=== PATIENT | female | born 1955 | race Caucasian/White ===

== ENCOUNTER 2017-03-03 18:57 | Observation (INO) | payer BC ==
[~2017-03-03] VITALS: Ht 162.6 cm; Wt 99.0 kg
[~2017-03-03 18:57] MED LIST: AMOXICILLIN500 MG OR; FLEXERIL PO; MECLIZINE25 MG OR; NAPROSYN500 MG PO; ULTRAM50 M1 PO; ZOFRAN4 M1 OR
[2017-03-03] MEDS ORDERED: PREVACID30 M2 PO (19:09)
[2017-03-03] MEDS ORDERED: TARCEVA25 MG PO (19:09)
--- NOTE | 2017-03-03 19:14 | NUR ---
PATIENT AMBULATORY TO ROOM 10. UNDRESSED INTO A GOWN. AWAITING MD CERVANTES.
[2017-03-03] MEDS ORDERED: XELODA500 MG PO (19:21)
--- NOTE | 2017-03-03 19:47 | NUR ---
MEDICATED FOR TEMP WITH TYLENOL AND MOTRIN. IV FLUIDS UP. AT BEDSIDE. PT COMPLAINING OF NAUSEA DR CASTORENA INFORMED.
[2017-03-03 20:00] LABS: HEMATOCRIT 31.2 % (37.0-47.0); HEMOGLOBIN 10.5 g/dl (12.0-16.0); IMMATURE GRANULOCYTES 0.4 % (0.0-1.0); MEAN CELL VOLUME 89.7 fL CALC (80.0-100.0); MEAN CORPUSCULAR HGB 30.2 pG CALC (26.0-32.0); MEAN CORPUSCULAR HGB CONC 33.7 g/L CALC (32.0-36.0); RED BLOOD COUNT 3.48 mill/uL (4.20-5.60)
[2017-03-03 20:21] LABS: ALBUMIN 3.6 g/dL (3.2-5.0); ALKALINE PHOSPHATASE 139 u/l (38-126); ANION GAP 16 (6-22 (CALC)); BILIRUBIN, TOTAL 1.5 mg/dL (0.0-1.4); BUN 9 mg/dL (7-17); BUN/CREATININE RATIO 17 (12-20 (CALC)); CALCIUM 8.8 mg/dL (8.4-10.2); CARBON DIOXIDE 25 mmol/l (22-30); CHLORIDE 101 mmol/l (95-108); CREATININE 0.5 mg/dL (0.5-1.0); GFR > 60 ML/MIN (>=60 (CALC)); GFR FOR AFR.AMER. > 60 ML/MIN (>=60 (CALC)); GLUCOSE 137 mg/dL (65-105); POTASSIUM 4.1 mmol/l (3.5-5.1); SGOT/AST 224 u/l (14-36); SGPT/ALT 145 u/l (9-52); SODIUM 137 mmol/l (137-146); TOTAL PROTEIN 6.5 g/dL (6.3-8.2)
[2017-03-03 20:44] LABS: AMYLASE < 30 u/l (30-110); LIPASE < 10 u/l (23-300)
--- NOTE | 2017-03-03 20:45 | NUR ---
NO FURTHER NAUSEA. XRAY DONE AT BEDSIDE, URINE COLLECTED.
[2017-03-03 21:20] LABS: URINE CLARITY SLIGHT CLOUDY; URINE COLOR YELLOW
[2017-03-03 21:21] LABS: URINE BILIRUBIN - DIPSTICK NEGATIVE (NEGATIVE); URINE BLOOD DIPSTICK TRACE-LYSED (NEGATIVE); URINE GLUCOSE - DIPSTICK NEGATIVE (NEGATIVE); URINE KETONE NEGATIVE (NEGATIVE); URINE LEUK ESTERASE LARGE (NEGATIVE); URINE NITRITE - DIPSTICK POSITIVE (Negative); URINE PH 7.5 (4.5-8.0); URINE PROTEIN - DIPSTICK NEGATIVE (NEG-TRACE)
[2017-03-03 21:32] LABS: URINE RBC 0-2 RBC/hpf (0-5)
[2017-03-03 21:33] LABS: URINE BACTERIA MANY hpf; URINE SQUAMOUS EPITHELIAL CELL RARE EPI/hpf (0-FEW)
--- NOTE | 2017-03-03 21:43 | NUR ---
TEMP DOWN TO 100.7, NO NAUSEA PT STATES SHE FEELS BETTER.
--- NOTE | 2017-03-03 22:20 | NUR ---
PT COMPLAINING IV HURTING. NOTED SWELLING AT SITE, IV SITE PULLED.
--- NOTE | 2017-03-03 22:50 | NUR ---
STARTED IV TO RAC, CALLED FLOOR FOR REPORT. NURSE WILL CALL BACK
--- NOTE | 2017-03-03 23:14 | NUR ---
Admission Note Report Given to: ADILENE ANDERSON. Transported by: X Wheelchair Stretcher Transported with: X Nurse Transporter X Patent IV O2 X Remedial Reading Teacher
--- NOTE | 2017-03-03 23:25 | NUR ---
PT. ARRIVED TO THE FLOOR VIA W/C ACCOMPANIED BY ER NURSE. ORIENTED TO ROOM, CALL LIGHT, AND POC, VERBALIZES UNDERSTANDING. ASSESSMENT COMPLETED. IV SITE PATENT TO RAC AND ORDERED IVF HUNG. PT. DENIES PAIN. PT. PROVIDED WITH SANDWICH AND JUICE PER REQUEST. ENCOURAGED TO CALL FOR ANY NEEDS. CALL LIGHT IS IN REACH. WILL CONTINUE TO MONITOR.
[2017-03-03] MEDS ORDERED: TRESIBA FL100 UNIT/M SC (23:39)
[2017-03-04 00:54] VITALS: BP 107/67
--- NOTE | 2017-03-04 03:45 | NUR ---
PT. ASSISTED TO AND FROM BATHROOM, URINE MISSED THE HAT. PT. DENIES FURTHER NEEDS. VS OBTAINED. ENCOURAGED TO CALL FOR ANY NEEDS. CALL LIGHT IS IN REACH.
[2017-03-04 03:47] VITALS: BP 98/67
[2017-03-04 05:57] LABS: HEMATOCRIT 28.2 % (37.0-47.0); HEMOGLOBIN 9.2 g/dl (12.0-16.0); IMMATURE GRANULOCYTES 0.2 % (0.0-1.0); MEAN CELL VOLUME 90.7 fL CALC (80.0-100.0); MEAN CORPUSCULAR HGB 29.6 pG CALC (26.0-32.0); MEAN CORPUSCULAR HGB CONC 32.6 g/L CALC (32.0-36.0); NEUT# 4.24 thou/uL (2.00-7.15); RED BLOOD COUNT 3.11 mill/uL (4.20-5.60)
[2017-03-04 06:11] LABS: ALBUMIN 2.9 g/dL (3.2-5.0); ALKALINE PHOSPHATASE 115 u/l (38-126); ANION GAP 13 (6-22 (CALC)); BILIRUBIN, TOTAL 0.9 mg/dL (0.0-1.4); BUN 9 mg/dL (7-17); BUN/CREATININE RATIO 17 (12-20 (CALC)); CALCIUM 8.4 mg/dL (8.4-10.2); CARBON DIOXIDE 25 mmol/l (22-30); CHLORIDE 109 mmol/l (95-108); CREATININE 0.5 mg/dL (0.5-1.0); GFR > 60 ML/MIN (>=60 (CALC)); GFR FOR AFR.AMER. > 60 ML/MIN (>=60 (CALC)); GLUCOSE 99 mg/dL (65-105); MAGNESIUM 2.1 mg/dL (1.6-2.3); POTASSIUM 3.9 mmol/l (3.5-5.1); SGOT/AST 170 u/l (14-36); SGPT/ALT 127 u/l (9-52); SODIUM 143 mmol/l (137-146); TOTAL PROTEIN 5.5 g/dL (6.3-8.2)
[2017-03-04 08:00] VITALS: BP 103/67
--- NOTE | 2017-03-04 08:00 | NUR ---
ASSESSMENT IS COMPLETED: PT IS RELAXING IN BED WITH NO DISTRESS NOTED. IV SITE IS FREE FROM REDNESS OR EDEMA
[2017-03-04 10:27] VITALS: BP 100/68
--- NOTE | 2017-03-04 12:20 | NUR ---
PT IS RELAXING IN BED WITH NO DISTRESS NOTED. IV SITE IS FREE FROM REDNESS OR EDEMA
[2017-03-04 14:48] VITALS: BP 100/68; BP 109/72
--- NOTE | 2017-03-04 16:20 | NUR ---
PT AND FAMILY IN THE ROOM, PT C/O NAUSEA NEW MEDICATIONS ORDERED
[2017-03-04 19:24] VITALS: BP 102/66
--- NOTE | 2017-03-04 19:30 | NUR ---
PT. SITTING UP IN BED WITH NO DISTRESS NOTED. ASSESSMENT AND VS COMPLETED. VSS. PT. C/O CONSTIPATION, LAST BM 03/03/17, MEDICATED WITH ORDERED STOOL SOFTNER WELL MIRALAX. IV SITE PATENT AND SL TO RAC. ENCOURAGED TO CALL FOR ANY NEEDS. CALL LIGHT IS IN REACH. WILL CONTINUE TO MONITOR.
--- NOTE | 2017-03-04 21:18 | NUR ---
PT. RESTING IN BED WITH NO DISTRESS NOTED. SCHED NOHELIA RIVAS. PT. REFUSES ORDERED LEVEMIR AT THIS TIME. SNACK PROVIDED. CALL LIGHT IS IN REACH.
--- NOTE | 2017-03-04 23:08 | NUR ---
PT. RESTING IN BED WITH EYES OPEN, NO DISTRESS NOTED. PT. VOICES NO COMPLAINTS AND DENIES NEEDS. CALL LIGHT IS IN REACH.
[2017-03-05 00:20] VITALS: BP 92/60
--- NOTE | 2017-03-05 03:29 | NUR ---
PT. RESTING IN BED WATCHING TV, NO DISTRESS NOTED. PT. REPORTS HAVING A MODERATE BM. PO FLUIDS OFFERED. PT. DENIES NEEDS AND VOICES NO COMPLAINTS. CALL LIGHT IS IN REACH.
[2017-03-05 04:00] VITALS: BP 114/62
--- NOTE | 2017-03-05 07:40 | NUR ---
PT ASSISTED TO CHAIR; PT C/O WEAKNESS AT TIME; TELE MONITOR IN PLACE; CALL CAMPOS WITHIN REACH; WILL CONTINUE TO MONITOR.
[2017-03-05 08:09] VITALS: BP 106/65
[2017-03-05 08:12] VITALS: BP 112/64
[2017-03-05 08:29] LABS: HEMATOCRIT 31.4 % (37.0-47.0); HEMOGLOBIN 10.3 g/dl (12.0-16.0); MEAN CELL VOLUME 90.8 fL CALC (80.0-100.0); MEAN CORPUSCULAR HGB 29.8 pG CALC (26.0-32.0); MEAN CORPUSCULAR HGB CONC 32.8 g/L CALC (32.0-36.0); RED BLOOD COUNT 3.46 mill/uL (4.20-5.60); RED CELL DISTRI WIDTH 18.4 % (11.5-15.5)
[2017-03-05 08:47] LABS: ALBUMIN 3.6 g/dL (3.2-5.0); ALKALINE PHOSPHATASE 151 u/l (38-126); ANION GAP 16 (6-22 (CALC)); BILIRUBIN, TOTAL 0.9 mg/dL (0.0-1.4); BUN 8 mg/dL (7-17); BUN/CREATININE RATIO 14 (12-20 (CALC)); CALCIUM 9.1 mg/dL (8.4-10.2); CARBON DIOXIDE 24 mmol/l (22-30); CHLORIDE 106 mmol/l (95-108); CREATININE 0.5 mg/dL (0.5-1.0); GFR > 60 ML/MIN (>=60 (CALC)); GFR FOR AFR.AMER. > 60 ML/MIN (>=60 (CALC)); GLUCOSE 110 mg/dL (65-105); POTASSIUM 4.4 mmol/l (3.5-5.1); SGOT/AST 178 u/l (14-36); SGPT/ALT 144 u/l (9-52); SODIUM 141 mmol/l (137-146); TOTAL PROTEIN 6.5 g/dL (6.3-8.2)
--- NOTE | 2017-03-05 09:00 | NUR ---
PT SITTING IN CHAIR; NO COMPLAINTS VOICED; TELE MONITOR IN PLACE; CALL CAMPOS WITHIN REACH; WILL CONTINUE TO MONITOR.
[2017-03-05 11:09] VITALS: BP 109/58
[2017-03-05] MEDS ORDERED: BACTRIM DS1 TAB PO (11:23)
--- NOTE | 2017-03-05 12:03 | NUR ---
PT IN SEMI FOWLERS POSITION; DENIES PAIN; TELE AND IV SITE REMOVED PER MD ORDERS; CALL CAMPOS WITHIN REACH; WILL CONTINUE TO MONITOR.
--- NOTE | 2017-03-05 12:22 | NUR ---
Discharge instructions given. Patient verbalizes understanding of same. Discharged in stable condition via Wheelchair to Home with family. All belongings sent with pt.
== END 2017-03-05 12:30 | disposition home or self-care (01) | DRG 690 ==
LOC: ENPENDDIS → ED 18:57 → ED-I 22:12 → ED 22:25 → MS2 22:26
PROVIDERS: Emergency Medicine; ADMIT Internal Medicine; ATTEND Internal Medicine
DX: N39.0 Urinary tract infection, site not specified (principal); C25.9 Malignant neoplasm of pancreas, unspecified; E13.9 Other specified diabetes mellitus without complications; B96.89 Other specified bacterial agents as the cause of diseases classified elsewhere; Z79.4 Long term (current) use of insulin; Z79.899 Other long term (current) drug therapy
CPT/HCPCS: G0378; J1650

== ENCOUNTER 2019-01-25 20:29 | Inpatient (IN) | payer BC ==
[~2019-01-25] VITALS: Ht 162.6 cm; Wt 70.0 kg
[~2019-01-25 20:29] MED LIST changes: +BACTRIM DS1 TAB PO; +PREVACID30 M2 PO; +TARCEVA25 MG PO; +TRESIBA FL100 UNIT/M SC; +XELODA500 MG PO
[2019-01-25] MEDS ORDERED: FIASP FLEX100 UNIT/M (20:51)
[2019-01-25 21:05] LABS: HEMOGLOBIN 10.4 g/dl (12.0-16.0); IMMATURE GRANULOCYTES 0.4 % (0.0-5.0); MEAN CELL VOLUME 89.1 fL CALC (80.0-100.0); MEAN CORPUSCULAR HGB 29.9 pG CALC (26.0-32.0); MEAN CORPUSCULAR HGB CONC 33.5 g/L CALC (32.0-36.0); NEUT# 5.33 thou/uL (2.00-7.15); RED BLOOD COUNT 3.48 mill/uL (4.20-5.60); RED CELL DISTRI WIDTH 16.6 % (11.5-15.5)
[2019-01-25 21:06] LABS: URINE BILIRUBIN - DIPSTICK NEGATIVE (NEGATIVE); URINE BLOOD DIPSTICK NEGATIVE (NEGATIVE); URINE COLOR YELLOW; URINE GLUCOSE - DIPSTICK 500 mg/dL (NEGATIVE); URINE KETONE NEGATIVE (NEGATIVE); URINE LEUK ESTERASE NEGATIVE (NEGATIVE); URINE NITRITE - DIPSTICK NEGATIVE (Negative); URINE PROTEIN - DIPSTICK TRACE mg/dL (NEG-TRACE); URINE SPECIFIC GRAVITY 1.025
[2019-01-25 21:29] LABS: ALKALINE PHOSPHATASE 94 u/l (38-126); BILIRUBIN, TOTAL 0.5 mg/dL (0.0-1.4); BUN 4 mg/dL (8-23); BUN/CREATININE RATIO 17 (12-20 (CALC)); CHLORIDE 114 mmol/l (95-108); CREATININE 0.3 mg/dL (0.5-1.0); GFR > 60 ML/MIN (>=60 (CALC)); GFR FOR AFR.AMER. > 60 ML/MIN (>=60 (CALC)); LIPASE < 10 u/l (23-300); SGOT/AST 16 u/l (9-36)
[2019-01-25 21:38] LABS: ALBUMIN 1.9 g/dL (3.2-5.0); AMYLASE < 30 u/l (30-110); ANION GAP 9 (6-22 (CALC)); CARBON DIOXIDE 16 mmol/l (22-30); POTASSIUM 2.9 mmol/l (3.5-5.1); SODIUM 136 mmol/l (137-146); TOTAL PROTEIN 4.4 g/dL (6.3-8.2)
[2019-01-26 03:32] VITALS: BP 138/70
[2019-01-26 05:18] LABS: BILIRUBIN, TOTAL 0.5 mg/dL (0.0-1.4); BUN 5 mg/dL (8-23); BUN/CREATININE RATIO 13 (12-20 (CALC)); CHLORIDE 105 mmol/l (95-108); CREATININE 0.4 mg/dL (0.5-1.0); GFR > 60 ML/MIN (>=60 (CALC)); GFR FOR AFR.AMER. > 60 ML/MIN (>=60 (CALC)); POTASSIUM 3.1 mmol/l (3.5-5.1); SGOT/AST 17 u/l (9-36); SODIUM 133 mmol/l (137-146); TOTAL PROTEIN 5.1 g/dL (6.3-8.2)
[2019-01-26 05:20] LABS: ALKALINE PHOSPHATASE 148 u/l (38-126); ANION GAP 9 (6-22 (CALC)); CARBON DIOXIDE 22 mmol/l (22-30)
[2019-01-26 05:21] LABS: ALBUMIN 2.4 g/dL (3.2-5.0); MAGNESIUM 2.5 mg/dL (1.6-2.3)
[2019-01-26 07:06] VITALS: BP 122/63
[2019-01-26 17:29] VITALS: BP 117/77
[2019-01-26 19:21] VITALS: BP 125/69
[2019-01-27] VITALS (11 sets, daily range): BP systolic 100–145; BP diastolic 63–81
[2019-01-27 05:33] LABS: HEMATOCRIT 29.6 % (37.0-47.0); HEMOGLOBIN 9.8 g/dl (12.0-16.0); IMMATURE GRANULOCYTES 0.4 % (0.0-5.0); MEAN CELL VOLUME 89.7 fL CALC (80.0-100.0); MEAN CORPUSCULAR HGB 29.7 pG CALC (26.0-32.0); MEAN CORPUSCULAR HGB CONC 33.1 g/L CALC (32.0-36.0); NEUT# 3.83 thou/uL (2.00-7.15); RED BLOOD COUNT 3.3 mill/uL (4.20-5.60); RED CELL DISTRI WIDTH 17.1 % (11.5-15.5)
[2019-01-27 05:47] LABS: ALBUMIN 2.3 g/dL (3.2-5.0); ALKALINE PHOSPHATASE 153 u/l (38-126); ANION GAP 8 (6-22 (CALC)); BILIRUBIN, TOTAL 0.6 mg/dL (0.0-1.4); BUN 5 mg/dL (8-23); BUN/CREATININE RATIO 13 (12-20 (CALC)); CARBON DIOXIDE 20 mmol/l (22-30); CHLORIDE 110 mmol/l (95-108); CREATININE 0.4 mg/dL (0.5-1.0); GFR > 60 ML/MIN (>=60 (CALC)); GFR FOR AFR.AMER. > 60 ML/MIN (>=60 (CALC)); SGOT/AST 23 u/l (9-36); SODIUM 134 mmol/l (137-146); TOTAL PROTEIN 5.2 g/dL (6.3-8.2)
[2019-01-27 05:56] LABS: POTASSIUM 4.2 mmol/l (3.5-5.1)
[2019-01-27 20:07] LABS: C. DIFFICILE TOXIN A&B NEGATIVE (NEGATIVE)
[2019-01-27 21:39] LABS: ANION GAP 13 (6-22 (CALC)); BUN 4 mg/dL (8-23); BUN/CREATININE RATIO 11 (12-20 (CALC)); CARBON DIOXIDE 16 mmol/l (22-30); CHLORIDE 110 mmol/l (95-108); CREATININE 0.4 mg/dL (0.5-1.0); GFR > 60 ML/MIN (>=60 (CALC)); GFR FOR AFR.AMER. > 60 ML/MIN (>=60 (CALC)); POTASSIUM 4.8 mmol/l (3.5-5.1); SODIUM 134 mmol/l (137-146)
[2019-01-27 21:45] LABS: MAGNESIUM 1.8 mg/dL (1.6-2.3)
[2019-01-28] VITALS (15 sets, daily range): BP systolic 86–114; BP diastolic 57–74
[2019-01-28 05:23] LABS: HEMATOCRIT 30.2 % (37.0-47.0); HEMOGLOBIN 10.1 g/dl (12.0-16.0); IMMATURE GRANULOCYTES 0.7 % (0.0-5.0); MEAN CELL VOLUME 90.4 fL CALC (80.0-100.0); MEAN CORPUSCULAR HGB 30.2 pG CALC (26.0-32.0); MEAN CORPUSCULAR HGB CONC 33.4 g/L CALC (32.0-36.0); PLATELET COUNT 240 thou/uL (130-400); RED BLOOD COUNT 3.34 mill/uL (4.20-5.60); RED CELL DISTRI WIDTH 17.3 % (11.5-15.5)
[2019-01-28 05:48] LABS: ALBUMIN 2.2 g/dL (3.2-5.0); ALKALINE PHOSPHATASE 144 u/l (38-126); ANION GAP 9 (6-22 (CALC)); BILIRUBIN, TOTAL 0.7 mg/dL (0.0-1.4); BUN 5 mg/dL (8-23); BUN/CREATININE RATIO 13 (12-20 (CALC)); CARBON DIOXIDE 19 mmol/l (22-30); CHLORIDE 110 mmol/l (95-108); CREATININE 0.4 mg/dL (0.5-1.0); GFR > 60 ML/MIN (>=60 (CALC)); GFR FOR AFR.AMER. > 60 ML/MIN (>=60 (CALC)); MAGNESIUM 1.8 mg/dL (1.6-2.3); POTASSIUM 4.7 mmol/l (3.5-5.1); SGOT/AST 24 u/l (9-36); SODIUM 135 mmol/l (137-146); TOTAL PROTEIN 5.2 g/dL (6.3-8.2)
[2019-01-28 06:19] LABS: BAND 2 % (0-8); MANUAL DIFFERENTIAL YES; OTHER CELL TYPE 2; PLATELET ESTIMATE NORMAL
[2019-01-28 10:15] LABS: PROTHROMBIN TIME 21.2 SECONDS (9.0-12.5)
[2019-01-29 00:01] VITALS: BP 100/63
[2019-01-29 02:00] VITALS: BP 106/64
[2019-01-29 04:00] VITALS: BP 114/64
[2019-01-29 04:57] LABS: HEMOGLOBIN 10.2 g/dl (12.0-16.0); IMMATURE GRANULOCYTES 1.3 % (0.0-5.0); MEAN CELL VOLUME 90.4 fL CALC (80.0-100.0); MEAN CORPUSCULAR HGB 29.7 pG CALC (26.0-32.0); MEAN CORPUSCULAR HGB CONC 32.9 g/L CALC (32.0-36.0); NEUT# 12.53 thou/uL (2.00-7.15); RED BLOOD COUNT 3.43 mill/uL (4.20-5.60); RED CELL DISTRI WIDTH 17.7 % (11.5-15.5)
[2019-01-29 05:47] LABS: ALBUMIN 2.4 g/dL (3.2-5.0); ALKALINE PHOSPHATASE 215 u/l (38-126); BILIRUBIN, TOTAL 0.7 mg/dL (0.0-1.4); BUN 11 mg/dL (8-23); BUN/CREATININE RATIO 18 (12-20 (CALC)); CARBON DIOXIDE 20 mmol/l (22-30); CHLORIDE 103 mmol/l (95-108); CREATININE 0.6 mg/dL (0.5-1.0); GFR > 60 ML/MIN (>=60 (CALC)); GFR FOR AFR.AMER. > 60 ML/MIN (>=60 (CALC)); MAGNESIUM 1.9 mg/dL (1.6-2.3); SODIUM 131 mmol/l (137-146); TOTAL PROTEIN 5.7 g/dL (6.3-8.2)
[2019-01-29 05:54] LABS: ANION GAP 14 (6-22 (CALC)); POTASSIUM 5.5 mmol/l (3.5-5.1); SGOT/AST 67 u/l (9-36)
[2019-01-29 06:00] VITALS: BP 98/69
[2019-01-29 06:02] LABS: LIPASE 12 u/l (23-300)
[2019-01-29 06:18] LABS: AMYLASE < 30 u/l (30-110)
[2019-01-29 08:00] VITALS: BP 105/67
[2019-01-29 10:00] VITALS: BP 110/67
[2019-01-29] MEDS ORDERED: MIRTAZAPINE15 MG PO (10:26)
[2019-01-29] MEDS ORDERED: ZOFRAN4 MG/TAB PO (10:27)
[2019-01-29] MEDS ORDERED: KEFLEX500 M1 PO (10:28)
== END 2019-01-29 11:17 | disposition home or self-care (01) | DRG 690 ==
LOC: ED 20:29 → ED-I 01-26 01:17 → ED 01-26 01:39 → MS2 01-26 01:40 → ICU 01-27 20:50
PROVIDERS: Emergency Medicine; Nurse Practitioner Family; ADMIT Internal Medicine Nephrology; ATTEND Internal Medicine Nephrology
DX: N39.0 Urinary tract infection, site not specified (principal); J90 Pleural effusion, not elsewhere classified; C25.9 Malignant neoplasm of pancreas, unspecified; C79.9 Secondary malignant neoplasm of unspecified site; E89.1 Postprocedural hypoinsulinemia; J98.11 Atelectasis; E87.1 Hypo-osmolality and hyponatremia; E86.0 Dehydration; K52.9 Noninfective gastroenteritis and colitis, unspecified; E83.42 Hypomagnesemia; E87.6 Hypokalemia; E83.51 Hypocalcemia; T45.1X5A Adverse effect of antineoplastic and immunosuppressive drugs, initial encounter; E13.9 Other specified diabetes mellitus without complications; D64.9 Anemia, unspecified; F32.9 Major depressive disorder, single episode, unspecified; B96.89 Other specified bacterial agents as the cause of diseases classified elsewhere; Y83.6 Removal of other organ (partial) (total) as the cause of abnormal reaction of the patient, or of later complication, without mention of misadventure at the time of the procedure; Z90.411 Acquired partial absence of pancreas; Z79.4 Long term (current) use of insulin; Z79.899 Other long term (current) drug therapy
CPT/HCPCS: J3475; Q9967; S0164

== ENCOUNTER 2019-02-03 09:30 | Inpatient (IN) | payer BC ==
[~2019-02-03] VITALS: Ht 162.6 cm; Wt 90.0 kg
[~2019-02-03 09:30] MED LIST changes: +FIASP FLEX100 UNIT/M; +KEFLEX500 M1 PO; +MIRTAZAPINE15 MG PO; +ZOFRAN4 MG/TAB PO
--- NOTE | 2019-02-03 09:44 | NUR ---
PATIENT AND FAMILY TO ROOM VIA WHEELCHAIR AND PHYSICIAN AT BEDSIDE FOR EVAL
--- NOTE | 2019-02-03 09:58 | NUR ---
IMPLANTED PORT IN R CHEST WALL ACCESSED USING STERILE TECHNIQUE WITH GOOD ASPIRATE NOTED, PT TOELRATED WELL AND DRESSING APPLIED, DATED AND TIMED, SPOUSE REMAINS AT BEDSIDE.
[2019-02-03 10:20] LABS: HEMATOCRIT 32.5 % (37.0-47.0); MEAN CELL VOLUME 87.8 fL CALC (80.0-100.0); MEAN CORPUSCULAR HGB 29.7 pG CALC (26.0-32.0); MEAN CORPUSCULAR HGB CONC 33.8 g/L CALC (32.0-36.0); NEUT# 14.45 thou/uL (2.00-7.15); RED BLOOD COUNT 3.7 mill/uL (4.20-5.60); RED CELL DISTRI WIDTH 18.6 % (11.5-15.5)
--- NOTE | 2019-02-03 10:35 | NUR ---
AWARE O0F SORE THROAT AND MOUTH WELL WHITE FILM NOTED TO TONGUE
[2019-02-03 10:41] LABS: ALBUMIN 2.5 g/dL (3.2-5.0); BUN 22 mg/dL (8-23); BUN/CREATININE RATIO 40 (12-20 (CALC)); CARBON DIOXIDE 17 mmol/l (22-30); CHLORIDE 96 mmol/l (95-108); CREATININE 0.5 mg/dL (0.5-1.0); GFR > 60 ML/MIN (>=60 (CALC)); GFR FOR AFR.AMER. > 60 ML/MIN (>=60 (CALC)); MAGNESIUM 2.3 mg/dL (1.6-2.3); TOTAL PROTEIN 6.3 g/dL (6.3-8.2)
[2019-02-03 10:42] LABS: ALKALINE PHOSPHATASE 503 u/l (38-126); ANION GAP 17 (6-22 (CALC)); BILIRUBIN, TOTAL 1.7 mg/dL (0.0-1.4); POTASSIUM 5.7 mmol/l (3.5-5.1); SGOT/AST 132 u/l (9-36); SODIUM 124 mmol/l (137-146)
--- NOTE | 2019-02-03 10:55 | NUR ---
PT OOK PO MEDICATIONS WITH WATER, REPOSITIONED FOR COMFORT, SPOUSE AT BEDSIDE
--- NOTE | 2019-02-03 11:09 | NUR ---
MD AT BEDSIDE DISCUSSING ADMISSION
--- NOTE | 2019-02-03 12:01 | NUR ---
REPORT CALLED TO [facility] ON MED SURG, ROOM 290 ASSIGNED, NO TELE
--- NOTE | 2019-02-03 12:05 | NUR ---
PT TO BE ADMITTED TO MED SURG ROOM 290 TRANSPORTED VIA STRETCHER WITH FAMILY AT SIDE AND ALL BELONGINGS SENT WITH PATIENT
[2019-02-03 12:22] VITALS: BP 151/81
--- NOTE | 2019-02-03 13:05 | NUR ---
PT HAD CAME FROM ER VIA STRETCHER BY DIEGO. X1 PERSON ASSIST PT TO BED. ASSESSMENT DONE. PT IS A&O X3. PT DENIES PAIN AT THIS TIME. IVF INFUSING WELL. O2 AT 2L VIA NC. PT STATED THAT SHE HAS BEEN FEELING WEAK AND NOT EATING WELL. PT STATED SHE HAD CHEMO LIKE THREE WEEKS AGO. SAFETY PRECAUTIONS REINFORCED AND CALL LIGHT IN REACH. FAMILY IN ROOM.
[2019-02-03 15:10] VITALS: BP 103/58
--- NOTE | 2019-02-03 15:58 | NUR ---
ASSISTED PT TO THE BSC. PT STATED I FEEL SO WEAK. PT VOID MARILOU URINE. ASSISTED PT BACK IN BED. PT DENIES PAIN. FAMILY IN ROOM. CALL LIGHT IN REACH.
[2019-02-03 16:08] LABS: URINE BLOOD DIPSTICK MODERATE (NEGATIVE); URINE COLOR DK. YELLOW; URINE GLUCOSE - DIPSTICK >=1000 mg/dL (NEGATIVE); URINE KETONE NEGATIVE (NEGATIVE); URINE LEUK ESTERASE NEGATIVE (NEGATIVE); URINE NITRITE - DIPSTICK NEGATIVE (Negative); URINE PROTEIN - DIPSTICK 30 mg/dL (NEG-TRACE); URINE SPECIFIC GRAVITY <=1.005
[2019-02-03 16:09] LABS: URINE BILIRUBIN - DIPSTICK NEGATIVE (NEGATIVE)
[2019-02-03 16:15] LABS: URINE SQUAMOUS EPITHELIAL CELL MODERATE EPI/hpf (0-FEW)
[2019-02-03 17:12] LABS: ANION GAP 13 (6-22 (CALC)); BUN 19 mg/dL (8-23); BUN/CREATININE RATIO 41 (12-20 (CALC)); CARBON DIOXIDE 18 mmol/l (22-30); CHLORIDE 102 mmol/l (95-108); CREATININE 0.5 mg/dL (0.5-1.0); GFR > 60 ML/MIN (>=60 (CALC)); GFR FOR AFR.AMER. > 60 ML/MIN (>=60 (CALC)); POTASSIUM 4.7 mmol/l (3.5-5.1); SODIUM 128 mmol/l (137-146)
[2019-02-03 19:00] VITALS: BP 117/79
--- NOTE | 2019-02-03 20:00 | NUR ---
PATIENT RESTING IN BED WITH O2 VIA NASAL CANNULA IN PLACE. VISITORS AT BEDSIDE. IVF PATENT ANDINFUSING AT 100CC/HR VIA RIGHT UPPER CHEST PORT. SITE APPEARS HEALTHY. CALL LIGHT IN REACH. WILL CONT TO MONITOR.
[2019-02-04] VITALS: BP 108/81
--- NOTE | 2019-02-04 00:16 | NUR ---
PATIENT CALLING OUT AND RESPONDED TO ROOM. PATIENT C/O FEELING SOB. O2 VIA NASAL CANNULA APPLIED. O2 SATS 99%. HOB ELEVATED. PATIENT IS TACHYPENIC WITH RESP 24-28/MIN. PATIENT C/O FEELING BLOATED. SAFETY PRECAUTIONS REINFORCED. CALL LIGHT IN REACH. WILL CONT TO MONITOR.
[2019-02-04 03:29] VITALS: BP 113/75
--- NOTE | 2019-02-04 04:00 | NUR ---
PATIENT IS MAX ASSSIT OOB TO VOID ON BSC-DARK MARILOU URINE AND THEN ASSISTED BACK TO BED. PATIENT WITH O2 VIA NASAL CANNULA IN PLACE. STILL SOB WITH O2 SAT OF 98%. STILL TACHYPENIC. MORNING LABS DRAWN FROM RIGHT UPPER CHEST PORT WITHOUT ANY DIFFICULTY-GOOD BLOOD RETURN. IVF NS PATENT AND INFUSING AT 100CC/HR. SITE IS HEALTHY AT THIS TIME. SAFETY PRECAUTIONS REINFORCED. CALL LIGHT IN REACH. WILL CONT TO MONITOR.
[2019-02-04 05:19] LABS: HEMATOCRIT 32.9 % (37.0-47.0); HEMOGLOBIN 11.1 g/dl (12.0-16.0); MEAN CELL VOLUME 87.5 fL CALC (80.0-100.0); MEAN CORPUSCULAR HGB 29.5 pG CALC (26.0-32.0); MEAN CORPUSCULAR HGB CONC 33.7 g/L CALC (32.0-36.0); RED BLOOD COUNT 3.76 mill/uL (4.20-5.60); RED CELL DISTRI WIDTH 18.8 % (11.5-15.5)
[2019-02-04 05:41] LABS: ANION GAP 14 (6-22 (CALC)); BUN 18 mg/dL (8-23); BUN/CREATININE RATIO 34 (12-20 (CALC)); CARBON DIOXIDE 19 mmol/l (22-30); CHLORIDE 102 mmol/l (95-108); CREATININE 0.5 mg/dL (0.5-1.0); GFR > 60 ML/MIN (>=60 (CALC)); GFR FOR AFR.AMER. > 60 ML/MIN (>=60 (CALC)); MAGNESIUM 2.3 mg/dL (1.6-2.3); POTASSIUM 5.1 mmol/l (3.5-5.1); SODIUM 130 mmol/l (137-146)
--- NOTE | 2019-02-04 07:00 | NUR ---
SHIFT CHANGE REPORT, PT AWAKE AND ORIENTED, LETHARGIC, C/O TENDERNESS TO LOWER ABD, IVF INFUSING, TELE MONITOR IN PLACE, CALL CAMPOS IN REACH, WILL CONTINUE TO MONITOR.
[2019-02-04 07:41] VITALS: BP 115/82
--- NOTE | 2019-02-04 13:50 | NUR ---
BLADDER SCANNED = 517 ML, # 16 LUCAS CATHETER PLACED WITHOUT DIFFICULTY, PT ALSO REQUESTED TO HAVE CATHETER PLACED.
--- NOTE | 2019-02-04 14:50 | NUR ---
BLOODGLUCOSE MEASURED = 61, OJ WITH REGULAR SUGAR GIVEN, JELLO ALSO OFFERED, PT HAD REFUSED LUNCH MEAL AND NOT HAD ANYTHING TO EAT/DRINK SINCE THIS AM, WILL CONTINUE TO MONITOR.
--- NOTE | 2019-02-04 14:57 | NUR ---
Discharge instructions given. Patient verbalizes understanding of same. Discharged in poor condition via Medical Transport to [facility] with *Other. All belongings sent with pt.
--- NOTE | 2019-02-04 15:08 | NUR ---
REPORT GIVEN TO INGRIS CullenRN) @ [facility], PT JUST LEFT WITH MEDICAL TRANSPORTERS, LUCAS CATHETER IN PLACE.
== END 2019-02-04 14:54 | DRG 641 ==
LOC: ED 09:30 → ED-I 10:59 → ED 11:22 → MS2 11:23
PROVIDERS: Emergency Medicine; ADMIT Internal Medicine; ATTEND Internal Medicine
PROC: 0T9B70Z Drainage of Bladder with Drainage Device, Via Natural or Artificial Opening (ICD-10-PCS; principal; 2019-02-04)
DX: E86.0 Dehydration (principal); C25.9 Malignant neoplasm of pancreas, unspecified; C79.9 Secondary malignant neoplasm of unspecified site; B37.0 Candidal stomatitis; E89.1 Postprocedural hypoinsulinemia; R18.8 Other ascites; K52.1 Toxic gastroenteritis and colitis; N39.0 Urinary tract infection, site not specified; J91.8 Pleural effusion in other conditions classified elsewhere; E87.1 Hypo-osmolality and hyponatremia; E87.2 Acidosis; E13.65 Other specified diabetes mellitus with hyperglycemia; K76.0 Fatty (change of) liver, not elsewhere classified; R11.2 Nausea with vomiting, unspecified; T45.1X5A Adverse effect of antineoplastic and immunosuppressive drugs, initial encounter; E87.6 Hypokalemia; E83.51 Hypocalcemia; F32.9 Major depressive disorder, single episode, unspecified; B96.89 Other specified bacterial agents as the cause of diseases classified elsewhere; Z90.411 Acquired partial absence of pancreas; Z79.899 Other long term (current) drug therapy
CPT/HCPCS: Q9967